=== PATIENT | female | born 1980 | race Caucasian/White ===

== ENCOUNTER → 2018-10-15 | Outpatient (CLI) | payer BC ==
[2018-10-15 16:16] VITALS: BP 106/57; PULSE 83; RESP 18; TEMP 96.9; BMI 23.3
--- NOTE | 2018-10-15 16:54 | P.HPOB ---
History of Present Illness H&P Date: 10/15/18 Chief Complaint: The patient is here for her routine gynecologic exam. This is a 38-year-old LMP of 09/24/2018. Her 's status post vasectomy. Menses are regular every month and she is without gynecologic complaints. Review of Systems The patient has gained 4 pounds over the last year. She denies respiratory, cardiac, or G.I. problems. 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 - Past Family History Mother Family Medical History: Diabetes Mellitus (Type II diabetes) Father Additional Family Medical History / Comment(s): ALS. Medications and Allergies Home Medications Medication Instructions Recorded Confirmed Type Ibuprofen [Motrin Ib] 200 mg PO 10/15/18 History Allergies Allergy/AdvReac Type Severity Reaction Status Date / Time No Known Allergies Allergy Unverified 10/15/18 16:12 Exam Vital Signs Temp Pulse Resp BP Pulse Ox 10/15/18 16:13 96.9 F L 83 18 106/57 98 Intake and Output 10/15/18 10/15/18 10/15/18 06:59 14:59 22:59 Other: Weight 58.06 kg Height 5'2", weight 128 pounds, BMI 23.4. This is a well-developed well-nourished white female who is alert and oriented times 3 in no acute distress. HEENT: Within normal limits. NECK: Supple without mass or thyromegaly. CHEST AND LUNGS: Clear to auscultation. HEART: Regular rate and rhythm. BREASTS: Are without mass or discharge. AXILLARY EXAM: Negative for adenopathy. BACK: Negative for CVA tenderness. ABDOMEN: Soft, nontender, without palpable masses. PELVIC EXAM: Normal external genitalia. Cervix and vagina appear normal. There is no unusual discharge. There is no evidence of prolapse. The uterus is midposition, nongravid size and nontender. There are no palpable adnexal masses or tenderness. RECTAL EXAM: negative for mass or tenderness. EXTREMITIES: Nontender. IMPRESSION: 1. 38-year-old female with normal gynecologic exam. 2. 's status post vasectomy. PLAN: 1. Pap smear was deferred since she had a negative one on 08/15/2017. 2. Self breast awareness was discussed with the patient. We will begin regular screening mammograms at age 39. 3. Osteoporosis prevention was discussed. I have stressed the importance of adequate calcium, vitamin D and regular exercise. Recommended amounts of calcium and vitamin D were also discussed. 4. The patient will return in one year for her well woman exam.
== END | disposition home or self-care (01) ==
LOC: WWCWWP 15:57
PROVIDERS: ATTEND Obstetrics & Gynecology
DX: Z53.9 Procedure and treatment not carried out, unspecified reason (principal)

== ENCOUNTER → 2020-09-29 | Outpatient (CLI) | payer BC ==
[2020-09-29 09:18] VITALS: BP 107/72; PULSE 67; RESP 16; TEMP 98.5
--- NOTE | 2020-09-29 10:02 | P.HPOB ---
History of Present Illness H&P Date: 09/29/20 Chief Complaint: The patient is here for her routine gynecologic exam. This is a 40-year-old with an LMP of 09/16/2020. The patient is without gynecologic complaints. Her is status post vasectomy. Menstrual periods are regular every month. Review of Systems The patient has gained 3 pounds over the last year. She denies respiratory, cardiac, or G.I. problems. 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 - Past Family History Mother Family Medical History: Diabetes Mellitus Father Additional Family Medical History / Comment(s): ALS. Medications and Allergies Home Medications Medication Instructions Recorded Confirmed Type Ibuprofen [Motrin Ib] 200 mg PO DAILY PRN 10/15/18 09/29/20 History Allergies Allergy/AdvReac Type Severity Reaction Status Date / Time No Known Allergies Allergy Unverified 09/29/20 09:12 Exam Vital Signs Temp Pulse Resp BP Pulse Ox 09/29/20 09:13 98.5 F 67 16 107/72 100 Intake and Output 09/28/20 09/29/20 09/29/20 22:59 06:59 14:59 Other: Weight 59.421 kg Height 5 foot 1 inch, weight 131 pounds, BMI 24.8. This is a well-developed well-nourished white female who is alert and oriented times 3 in no acute distress. HEENT: Within normal limits. NECK: Supple without mass or thyromegaly. CHEST AND LUNGS: Clear to auscultation. HEART: Regular rate and rhythm. BREASTS: There is a lump in the right breast at the 1 to 2 o'clock position approximately 3 cm from the areola. The lump measures approximately 1.0 x 1.0 cm. This is mildly tender. There is moderate fibrocystic tissue throughout both breasts. There are no other discrete lumps or masses. Nipples appear normal with no evidence of nipple discharge. AXILLARY EXAM: Negative for adenopathy. BACK: Negative for CVA tenderness. ABDOMEN: Soft, nontender, without palpable masses. PELVIC EXAM: Normal external genitalia. Cervix and vagina appear normal. There is no unusual discharge. There is no evidence of prolapse. The uterus is posterior, nongravid size and nontender. There are no palpable adnexal masses or tenderness. RECTAL EXAM: negative for mass or tenderness and is negative for occult blood. EXTREMITIES: Nontender. IMPRESSION: 1. 40-year-old perimenopausal female whose is status post vasectomy with normal pelvic exam.. 2. Palpable right breast lump measuring approximately 1.0 x 1.0 cm among moderate bilateral fibrous type breast tissue. Differential diagnosis will include prominent normal fibrous tissue, breast cyst, fibrocystic changes, or other breast neoplasm. PLAN: 1. Pap smear cotest was performed. 2. Self breast awareness was discussed with the patient. 3. Diagnostic mammogram with right breast ultrasound has been scheduled for 10/06/2020. We will determine if follow-up is necessary after the imaging is complete. 4. Osteoporosis prevention was discussed. I have stressed the importance of adequate calcium, vitamin D and regular exercise. Recommended amounts of calcium and vitamin D were also discussed. 5. She was advised to return in one year for her annual well woman exam.
--- NOTE | 2020-10-13 12:14 | P.PN ---
Progress Note - Text Progress Note Date: 10/13/20 OUTPATIENT FOLLOW-UP NOTE TEST(S)/RESULTS: Test results from 09/29/2020 include negative Pap smear and negative high-risk HPV testing. Diagnostic mammogram with bilateral breast ultrasound done on 10/06/2020 had a suspicious finding in the right breast. METHOD OF NOTIFICATION: The patient was notified about the Pap smear cotest results by phone. PATIENT COMMENTS: The patient is aware of the abnormal breast imaging and the recommendation for a breast biopsy. She is scheduled for this as well as an appointment with Dr. Sergio Kendall. DIAGNOSIS: Negative Pap smear cotest. Suspicious right breast finding on exam with suspicious right breast imaging. DISCUSSION: PLAN: The patient is scheduled for a right breast biopsy and also has an appointment with Dr. Sergio Kendall. She was advised to return in one year for her annual well woman exam with me.
== END | disposition home or self-care (01) ==
LOC: WWCWWP 09:02
PROVIDERS: ATTEND Obstetrics & Gynecology
DX: Z53.9 Procedure and treatment not carried out, unspecified reason (principal)

== ENCOUNTER → 2020-10-06 | Outpatient (CLI) | payer BC ==
--- NOTE | 2020-10-07 11:26 | MM ---
Reason for exam: clinical finding. History: Took hormonal contraceptives beginning at age 17. Physical Findings: Nurse Summary: 3-4cm nodule in the right breast at 1 o'clock (nurse ute). MG 3D Diag Mammo W/Cad UMANG Bilateral CC and MLO view(s) were taken. The breast tissue is heterogeneously dense. This may lower the sensitivity of mammography. Multiple underlying circumscribed masses bilaterally measuring up to 2.8cm on the right where a palpable maker is present. These results were verbally communicated with the patient and result sheet given to the patient on 10/06/20. ASSESSMENT: Incomplete: need additional imaging evaluation, BI-RAD 0 RECOMMENDATION: Ultrasound of both breasts.
--- NOTE | 2020-10-07 11:31 | USB ---
Reason for exam: additional evaluation requested from abnormal screening. History: Took hormonal contraceptives beginning at age 17. US Breast BILAT Right complete breast ultrasound includes all four quadrants, the retroareolar region and axilla. Finding demonstrates a 2.7 x 0.9 x 1.8cm cystic lesion at 1 o'clock, a 2.7 x 0.8 x 3.1cm palpable, benign, cystic cluster at 2 o'clock, a 0.6 x 0.7 x 0.7cm hypoechoic, somewhat irregular lesion at 3 o'clock for which a biopsy is recommended and a 1.7 x 0.7 x 1.8cm cystic lesion at 8 o'clock. Left complete breast ultrasound includes all four quadrants, the retroareolar region and axilla. Finding demonstrates a 1.5 x 1.0 x 1.4cm cystic lesion at 2 o'clock and a 1.8 x 0.6 x 1.3cm cystic lesion at 9 o'clock. Multiple cystic areas bilaterally. These results were verbally communicated with the patient and result sheet given to the patient on 10/06/20. ASSESSMENT: Suspicious, BI-RAD 4 RECOMMENDATION: Ultrasound core biopsy of the right breast. (3:00) Called Dr. Lund's office with mammographic findings and has scheduled an appointment for the patient for 11/04/20 at 2:[address] Clinton. Biopsy scheduled for 11/05/20 at 9:30. PRELIMINARY REPORT CALLED AND FAXED TO DR. CLINTON ON 10/06/20.
== END | disposition home or self-care (01) ==
LOC: RADMAMWWP 13:38
PROVIDERS: ATTEND Obstetrics & Gynecology
DX: N63.12 Unspecified lump in the right breast, upper inner quadrant (principal); R92.8 Other abnormal and inconclusive findings on diagnostic imaging of breast
CPT/HCPCS: 77062; 77066

== ENCOUNTER → 2020-11-04 | Outpatient (CLI) | payer BC ==
[2020-11-04 14:21] VITALS: BP 97/58; PULSE 81; RESP 18; TEMP 98.3
--- NOTE | 2020-11-04 14:46 | P.GSHP ---
History of Present Illness H&P Date: 11/04/20 Chief Complaint: abnormal mammogram and ultrasoudn right breast Odilia is a 40 year old white female seen in consultation for Dr. Lund with a complaint of an abnormal ultrasound of the right breast. She had a routine bilateral mammogram on . This revealed multiple underlying circumscribed masses bilaterally measuring up to 2.8 cm on the right for which a palpable mass was present. Ultrasound of both breasts was recommended. This was performed on the same date. In the right breast that showed a 0.6 x 0.7 cm hypoechoic somewhat irregular lesion at 3:00 for which a biopsy was recommended. The left breast showed cystic lesions as well. Multiple cystic areas bilaterally were noted. Ultrasound core biopsy of the right breast was recommended. She has an area of increased nodularity in her right breast in the upper inner quadrant. This has not changed at all. She is not complaining of any nipple discharge or skin changes. She is not complaining of breast pain. Her breat are tender right before she begins her periods. Her LMP was . Caffeine: 3-4 cups of coffee per day Nicotine: Negative Chocolate: Negative Family history: maternal grandfather: lung cancer Hormonal History: menarche: 12 , breast fed: yes, age at first : 26 periods regular BCP: none now used them for 6 years in the past Hormones: none Surgical history: Tonsillectomy Medical history: Negative Social history: Nicotine: Negative Alcohol occasional Drugs: Negative - Constitutional Constitutional: Reports sweats - EENT Eyes: denies blurred vision, denies pain Ears: deny: decreased hearing, tinnitus Ears, nose, mouth and throat: Denies headache, Denies sore throat - Breasts Breasts: bilateral: as per HPI - Cardiovascular Cardiovascular: Denies chest pain, Denies shortness of breath - Respiratory Respiratory: Denies cough, Denies 7 - Gastrointestinal Gastrointestinal: Denies abdominal pain, Denies diarrhea, Denies nausea, Denies vomiting - Genitourinary (Female) Genitourinary: Denies dysuria, Denies hematuria - Menstruation Menstruation: Reports period normal - Musculoskeletal Musculoskeletal: Denies myalgias - Integumentary Integumentary: Denies pruritus, Denies rash - Neurological Neurological: Denies numbness, Denies weakness - Psychiatric Psychiatric: Denies anxiety, Denies depression - Endocrine Endocrine: Denies fatigue, Denies weight change - Hematologic/Lymphatic Comment: none - Allergic/Immunologic Allergic/Immunologic: Reports as per HPI Past Medical History Past Medical History: No Reported History 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 History of Any Multi-Drug Resistant Organisms: None Reported Past Surgical History: Tonsillectomy Past Psychological History: No Psychological Hx Reported Smoking Status: Never smoker Past Alcohol Use History: Occasional Past Drug Use History: None Reported - Past Family History Mother Family Medical History: Diabetes Mellitus Father Additional Family Medical History / Comment(s): ALS. Medications and Allergies Home Medications Medication Instructions Recorded Confirmed Type No Known Home Medications 10/27/20 11/04/20 History Allergies Allergy/AdvReac Type Severity Reaction Status Date / Time No Known Allergies Allergy Unverified 11/04/20 14:19 Surgical - Exam Vital Signs Temp Pulse Resp BP Pulse Ox 98.3 F 81 18 97/58 98 11/04/20 14:19 11/04/20 14:19 11/04/20 14:19 11/04/20 14:19 11/04/20 14:19 BMI 24.9 - General well developed, well nourished, no distress - Eyes normal ocular movement - ENT normal pinna, normal nares - Neck no masses, trachea midline - Respiratory normal expansion, normal respiratory effort, clear to auscultation - Cardiovascular Rhythm: regular Heart Sounds: normal: S1, S2 - Abdomen Abdomen: soft - Integumentary normal turgor - Neurologic no disoriented, no combative - Musculoskeletal normal gait, normal posture - Psychiatric oriented to time, oriented to person, oriented to place, speech is normal, memory intact breast exam: BRA: 34B inspection: Bilateral grade 2 ptosis Palpation: Right breast: Multi-positional exam fibrocystic changes increased nodularity at 3:00 approximately 8 mm in size otherwise no dominant masses or nodules of concern Right axilla: No adenopathy of concern Left breast: Positional exam fibrocystic changes, no dominant masses or nodules of concern Left axilla: No adenopathy of concern Results Mammogram and ultrasound results reviewed Assessment and Plan Assessment: Impression: 1. Radiographic abnormality right breast on both mammogram and ultrasound 2. Palpable nodularity right breast at 3:00 corresponding to mammographic abnormality 3. Fibrocystic breast changes Plan: 1. Ultrasound-guided core biopsy/aspiration lesion at 3:00 in the right breast 2. Follow-up after ultrasound-guided core aspiration/biopsy Risks and benefits of the procedure discussed with the patient, she understands and wishes to proceed Cc: Dr. Lund, Dr. Curry encounter 30 minutes, time spent in reviewing records, physical examination, and counselling.
== END ==
LOC: WWCWWP 14:09
PROVIDERS: ATTEND Surgery
DX: N63.10 Unspecified lump in the right breast, unspecified quadrant (principal); N60.12 Diffuse cystic mastopathy of left breast; N60.11 Diffuse cystic mastopathy of right breast

== ENCOUNTER → 2020-11-05 | Day surgery (SDC) | payer BC ==
[2020-11-05 10:02] VITALS: RESP 16
[2020-11-05 11:07] VITALS: BP 94/62; PULSE 72; TEMP 98.4
--- NOTE | 2020-11-05 12:33 | USB ---
EXAMINATION TYPE: US biopsy breast VAD RT, MG postprocedure diagnostic mammo RT wo CAD DATE OF EXAM: 11/05/2020 CLINICAL HISTORY: 40-year-old female R92.8 Abnormal Mammogram. TECHNIQUE: Ultrasound guided core biopsy of the right breast. COMPARISON: 10/06/2020 FINDINGS: The procedure of ultrasound guided core biopsy was explained to the patient. Benefits, alternatives, and risks were discussed. An informed consent was then obtained. The 9 mm hypoechoic area at the 3:00 position of the right breast was identified and targeted for biopsy. The patient was placed in supine positioning for imaging and for the procedure. The overlying skin was prepped and draped in usual sterile fashion. Lidocaine was used as anesthetic into the skin and subcutaneous tissue up to area of concern in the 3:00 right breast. Under ultrasound guidance, a 13-gauge vacuum-assisted mammotome Elite biopsy gun device was used to obtain 5 core samples. Following this, a ribbon clip was left at the site of biopsy. The patient tolerated the procedure well without any immediate complication. The patient was kept in the radiology department for short stay after the procedure and then discharged home in stable condition. Post biopsy mammogram shows the ribbon clip at the 2 to 3:00 position one of the sites of mammographic asymmetric density. IMPRESSION: Successful, uncomplicated ultrasound guided core biopsy of the 3:00 hypoechoic area in the right. Full pathology results to follow. If benign results, one year follow-up diagnostic bilateral mammograms can be performed given the extensive bilateral breast complexity. Pathology Results: Benign RIGHT BREAST, ULTRASOUND GUIDED CORE BIOPSY: Fibroadenoma and background fibrocystic changes with rare microcalcifications. RECOMMENDATION: One year follow-up diagnostic bilateral mammograms as mentioned above. MOISÉSD
== END ==
LOC: RADUSWWP 09:27
PROVIDERS: ATTEND Surgery
DX: D24.1 Benign neoplasm of right breast (principal); N60.11 Diffuse cystic mastopathy of right breast
CPT/HCPCS: 88305; 77065; 19083; A4648; J2001

== ENCOUNTER → 2020-11-12 | Outpatient (CLI) | payer BC ==
[2020-11-12 10:16] VITALS: BP 117/81; PULSE 71; RESP 18; TEMP 98.2
--- NOTE | 2020-11-12 10:34 | P.PN ---
Subjective Progress Note Date: 11/12/20 Principal diagnosis: fibroadenoma right breast Odilia is a 40 year old white female seen in consultation for Dr. Lund with a complaint of an abnormal ultrasound of the right breast. She had a routine bilateral mammogram on . This revealed multiple underlying circu mscribed masses bilaterally measuring up to 2.8 cm on the right at which location a palpable mass was present. Ultrasound of both breasts was recommended. This was performed on the same date. In the right breast that showed a 0.6 x 0.7 cm hypoechoic somewhat irregular lesion at 3:00 for which a biopsy was recommended. The left breast showed cystic lesions as well. Multiple cystic areas bilaterally were noted. Ultrasound core biopsy of the right breast was recommended. She has an area of increased nodularity in her right breast in the upper inner quadrant. This has not changed at all. She is not complaining of any nipple discharge or skin changes. She is not complaining of breast pain. Her breast are tender right before she begins her periods. Her LMP was . Ultrasound-guided core biopsy was performed on . This was consistent with a fibroadenoma. The patient has no complaints related to the biopsy. Caffeine: 3-4 cups of coffee per day Nicotine: Negative Chocolate: Negative Family history: maternal grandfather: lung cancer Hormonal History: menarche: 12 , breast fed: yes, age at first : 26 periods regular BCP: none now used them for 6 years in the past Hormones: none Surgical history: Tonsillectomy Medical history: Negative Social history: Nicotine: Negative Alcohol occasional Drugs: Negative - Constitutional Constitutional: Reports sweats - EENT Eyes: denies blurred vision, denies pain Ears: deny: decreased hearing, tinnitus Ears, nose, mouth and throat: Denies headache, Denies sore throat - Breasts Breasts: bilateral: as per HPI - Cardiovascular Cardiovascular: Denies chest pain, Denies shortness of breath - Respiratory Respiratory: Denies cough, - Gastrointestinal Gastrointestinal: Denies abdominal pain, Denies diarrhea, Denies nausea, Denies vomiting - Genitourinary (Female) Genitourinary: Denies dysuria, Denies hematuria - Menstruation Menstruation: Reports period normal - Musculoskeletal Musculoskeletal: Denies myalgias - Integumentary Integumentary: Denies pruritus, Denies rash - Neurological Neurological: Denies numbness, Denies weakness - Psychiatric Psychiatric: Denies anxiety, Denies depression - Endocrine Endocrine: Denies fatigue, Denies weight change - Hematologic/Lymphatic Comment: none - Allergic/Immunologic Allergic/Immunologic: Reports as per HPI Past Medical History Past Medical History: No Reported History 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 History of Any Multi-Drug Resistant Organisms: None Reported Past Surgical History: Tonsillectomy Past Psychological History: No Psychological Hx Reported Smoking Status: Never smoker Past Alcohol Use History: Occasional Past Drug Use History: None Reported Objective - Vital Signs Vital signs: Vital Signs Temp 98.2 F 11/12/20 10:14 Pulse 71 11/12/20 10:14 Resp 18 11/12/20 10:14 BP 117/81 11/12/20 10:14 Pulse Ox 100 11/12/20 10:14 Intake & Output 11/11/20 11/12/20 11/12/20 18:59 06:59 18:59 Weight 58.967 kg - Exam BMI 24.6 - Constitutional General appearance: Present: average body habitus - EENT Eyes: Present: EOMI ENT: Present: hearing grossly normal - Neck Neck: Present: normal ROM - Respiratory Respiratory: bilateral: CTA - Cardiovascular Rhythm: regular Heart sounds: normal: S1, S2 - Integumentary Integumentary Comment(s): Biopsies a clean and dry Evidence of infection, mild ecchymosis of biopsy site, no evident hematoma Integumentary: Present: normal turgor - Musculoskeletal Musculoskeletal: Present: gait normal - Psychiatric Psychiatric: Present: A&O x's 3, appropriate affect, intact judgment & insight Assessment and Plan Assessment: Impression: 1. Patient status post ultrasound-guided core biopsy radiographic abnormality right breast. This corresponded to the palpable change in the right breast as well. Benign fibroadenoma. 2. Fibrocystic changes Plan: 1. Repeat ultrasound right breast in 6 months to assure this area is not increasing in size 2. Repeat bilateral mammogram in 1 year, physician exam at that time CC: Dr. Soria ([place]), Dr. Lund
== END ==
LOC: WWCWWP 09:58
PROVIDERS: ATTEND Surgery
DX: D24.1 Benign neoplasm of right breast (principal); N60.11 Diffuse cystic mastopathy of right breast; N60.12 Diffuse cystic mastopathy of left breast

== ENCOUNTER → 2021-10-12 | Outpatient (CLI) | payer BC ==
--- NOTE | 2021-10-12 09:38 | MM ---
Reason for exam: additional evaluation requested from prior study. Last mammogram was performed 11 months ago. History: Benign US biopsy breast VAD RT of the right breast, November 05, 2020. Took hormonal contraceptives beginning at age 17. Physical Findings: Nurse Summary: 0.5cm nodule in the right breast at 9 o'clock (nurse mj). MG 3D Diag Mammo W/Cad UMANG Bilateral CC and MLO view(s) were taken. Prior study comparison: November 05, 2020, right breast MG diagnostic mammo RT wo CAD. October 06, 2020, bilateral MG 3d diag mammo w/cad UMANG. The breast tissue is heterogeneously dense. This may lower the sensitivity of mammography. Stable benign calcifications bilaterally. Multiple bilateral masses likely reflecting cysts. Ultrasound recommended of palpable abnormality on right breast. These results were verbally communicated with the patient and result sheet given to the patient on 10/12/21. ASSESSMENT: Incomplete: need additional imaging evaluation, BI-RAD 0 RECOMMENDATION: Ultrasound of the right breast. Manage patient on a clinical basis.
--- NOTE | 2021-10-12 09:39 | USB ---
Reason for exam: additional evaluation requested from abnormal screening. History: Benign US biopsy breast VAD RT of the right breast, November 05, 2020. Took hormonal contraceptives beginning at age 17. US Breast Limited RT Technologist: Ana Luisa Romero Right limited breast ultrasound including focal area of concern, retroareolar and axilla demonstrates a 0.3 x 0.4 x 0.3cm cystic lesion at 9 o'clock BB. These results were verbally communicated with the patient and result sheet given to the patient on 10/12/21. ASSESSMENT: Benign, BI-RAD 2 RECOMMENDATION: Routine screening mammogram of both breasts in 1 year. Manage patient on a clinical basis.
== END | disposition home or self-care (01) ==
LOC: RADMAMWWP 07:37
PROVIDERS: ATTEND Surgery
DX: R92.8 Other abnormal and inconclusive findings on diagnostic imaging of breast (principal)
CPT/HCPCS: 77062; 77066

== ENCOUNTER → 2021-11-08 | Outpatient (CLI) | payer BC ==
[2021-11-08 16:19] VITALS: BP 112/73; PULSE 73; RESP 17; TEMP 98.7
--- NOTE | 2021-11-08 16:57 | P.HPOB ---
History of Present Illness H&P Date: 11/08/21 Chief Complaint: The patient is here for her routine gynecologic exam. This is a 41-year-old with an LMP of 10/12/2021. The patient's is status post vasectomy. Menstrual periods are regular every month. She is without gynecologic complaints. She states she did notice a rash after her second Covid vaccination as well as after having a mild case of Covid after her vaccinations. Recently this rash was on her neck, but this has improved. Now she has a rash between the breasts over the sternum. Her PCP prescribed a steroid pack and this did seem to improve somewhat, but seems to be coming back. Review of Systems The patient's weight has been stable over the last year. She denies respiratory, cardiac, or G.I. problems. 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 History of Any Multi-Drug Resistant Organisms: None Reported Past Surgical History: Breast Surgery, Tonsillectomy Additional Past Surgical History / Comment(s): Right breast biopsy 2020-benign. 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 - Past Family History Mother Family Medical History: Diabetes Mellitus Father Additional Family Medical History / Comment(s): ALS. Brother(s) Family Medical History: Renal Disease Additional Family Medical History / Comment(s): Nicole's nephropathy. Medications and Allergies Home Medications Medication Instructions Recorded Confirmed Type methylPREDNISolone Dose Pack 4 mg PO DAILY 11/08/21 11/08/21 History [Medrol Dose Pack] Allergies Allergy/AdvReac Type Severity Reaction Status Date / Time No Known Allergies Allergy Verified 11/08/21 16:15 Exam Vital Signs Temp Pulse Resp BP Pulse Ox 11/08/21 16:16 98.7 F 73 17 112/73 100 Intake and Output 11/08/21 11/08/21 11/08/21 06:59 14:59 22:59 Other: Weight 59.874 kg Height 5 foot 1 inch, weight 132 pounds, BMI 24.9. This is a well-developed well-nourished white female who is alert and oriented times 3 in no acute distress. HEENT: Within normal limits. NECK: Supple without mass or thyromegaly. CHEST AND LUNGS: Clear to auscultation. There is a slight papular rash over the sternum in the midline. HEART: Regular rate and rhythm. BREASTS: Are without mass or discharge. AXILLARY EXAM: Negative for adenopathy. BACK: Negative for CVA tenderness. ABDOMEN: Soft, nontender, without palpable masses. PELVIC EXAM: Normal external genitalia. Cervix and vagina appear normal. There is no unusual discharge. There is no evidence of prolapse. The uterus is midposition, nongravid size and nontender. There are no palpable adnexal masses or tenderness. RECTAL EXAM: negative for mass or tenderness and is negative for occult blood. EXTREMITIES: Nontender. IMPRESSION: 1. 41-year-old premenopausal female whose is status post vasectomy, with normal gynecologic exam. 2. Slight rash over the sternum in the midline. This may or may not be related to her Covid vaccination or mild Covid infection. PLAN: 1. Pap smear was deferred since she had a negative Pap smear test on 09/29/2020. 2. Self breast awareness was discussed with the patient. We have also discussed symptoms associated with inflammatory breast cancer. 3. Bilateral diagnostic mammogram was done on 10/12/2021 and this did include a right breast ultrasound. This was felt to be benign and screening mammogram was recommended in 1 year. 4. If her chest wall rash has not improved after the Medrol Dosepak prescribed by her PCP, I have recommended she consider seeing a frame assembler for this. 5. Osteoporosis prevention was discussed. I have stressed the importance of adequate calcium, vitamin D and regular exercise. 6. She did receive her Covid vaccination series, but does not get a booster. 7. The HPV vaccination available for teenagers was discussed since she does have 2 teenage kids. 8. She was advised to return in one year for her annual well woman exam.
== END ==
LOC: WWCWWP 16:08
PROVIDERS: ATTEND Obstetrics & Gynecology
DX: Z01.419 Encounter for gynecological examination (general) (routine) without abnormal findings (principal); R21 Rash and other nonspecific skin eruption

== ENCOUNTER → 2022-07-18 | Outpatient (CLI) | payer BC ==
[2022-07-18 08:21] VITALS: BP 119/79; PULSE 78; RESP 17; TEMP 97.9
--- NOTE | 2022-07-18 08:51 | P.PN ---
Progress Note - Text Progress Note Date: 07/18/22 Chief Complaint: Right breast lumps first noticed about 1 week ago. HPI: This is a 42-year-old with an LMP of 06/27/2022. The patient's is status post vasectomy. The patient noticed 2 breast lumps in the right breast about 1 week ago. One is more prominent at approximately the 7 to 8 o'clock position. A second one is smaller at approximately the 9 o'clock position close to the areola. She denies breast pain or tenderness. She also denies nipple discharge or blood. She has not lost weight recently. The patient had an abnormal mammogram on the right side with suspicious changes at the 3 o'clock position. She did have a breast biopsy about 1-1/2 years ago at the 3 o'clock position and this showed a benign fibroadenoma. ROS: She denies weight loss or fever. She denies respiratory, cardiac, or GI problems. PE: Blood pressure: 119/79, Height: 5 feet 2 inches, Weight: And 133 pounds, Temperature: 97.9, Pulse: 78. Pulse oximeter 100%. This is a well developed, well nourished, white female who is alert and orientedx3, in no acute distress. Breast exam: The right breast is normal in appearance without unusual puckering or dimpling. There is no nipple inversion or evidence of nipple discharge. At the 8 o'clock position there is a mass measuring approximately 1.5 x 2 cm. This is approximately 3.5 cm from the areola. Approximately 1.5 cm from the areola at the 9 o'clock position there is a firm area measuring approximately 1 x 1.5 cm. Both of these areas are nontender. The right breast has moderate fibrous- type changes throughout that make the breast seem more heterogeneous and consistent with fibrocystic changes. The left breast also has moderate fibrocystic changes throughout without a dominant mass. Axillary exam is negative for adenopathy bilaterally. Impression: 1. 42-year-old peremenopausal female with fibrocystic type changes in the breasts with a dominant lump at the 8 o'clock position measuring approximately 1.5 x 2 cm. There is a left prominent lump at the 9 o'clock position measuring 1 x 1.5 cm. Differential diagnosis will include fibrocystic changes of the breast, fibroadenoma as well as other breast neoplasm. 2. 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 Plan: 1. Breast ultrasound on the right side will be done today. The areas of concern had been marked. If benign appearance by ultrasound, she will be re- seen in approximately 4 months for her annual well woman examination with a mammogram. If there are any suspicious signs by ultrasound, she will be referred back to Dr. Sergio Kendall, who she had seen for the suspicious mammogram in 2020. Time spent with the patient: 15 minutes
--- NOTE | 2022-07-18 09:08 | USB ---
Reason for Exam: Clinical finding. Patient History: Menarche at age 12. First Full-Term at age 26. Hormonal Contraceptives, from age 17 until age 25. 11/05/2020, Benign Core Biopsy on the right side. Risk Values: Juliane 5 year model risk: 1.3%. NCI Lifetime model risk: 13.0%. Technique: Method: Targeted. Prior Study Comparison: 10/06/2020 Bilateral Diagnostic Mammogram, [facility]. 11/05/2020 Right Diagnostic Mammogram, [facility]. 10/12/2021 Bilateral Diagnostic Mammogram, [facility]. Findings: The upper outer quadrant of the right breast, the axilla of the right breast and the retroareolar of the right breast were scanned. Targeted ultrasound right breast upper outer quadrant 9:00 to 12:00 including the subareolar region axilla. At the 9:00 palpable site, there is a large 2 cm cyst. At the 11:00 palpable site, there is a large 2.5 cm cyst. At the 12:00, nonpalpable site, there is an even larger 3.7 cm cyst. Additional conglomerate cysts measuring up to 3.9 cm are also noted at both block. No axillary lymphadenopathy or suspicious solid lesion.. Overall Assessment: Probably benign, BI-RAD 3 Management: Diagnostic Mammogram of both breasts in 3 months. 1. Patient should continue monthly self breast exams. 2. A clinical breast exam by your physician is recommended on an annual basis. 3. This exam should not preclude additional follow-up of suspicious palpable abnormalities. Electronically signed and approved by: Nadya Baer M.D. Radiologist
--- NOTE | 2022-07-18 11:37 | P.PN ---
Progress Note - Text Progress Note Date: 07/18/22 OUTPATIENT FOLLOW-UP NOTE TEST(S)/RESULTS: Breast ultrasound done today, 07/18/2022, showed benign- appearing cysts. The largest cyst measured 3.7 cm and another cyst measured 2.5 cm. METHOD OF NOTIFICATION: A message with these results was left on the patient's voicemail. PATIENT COMMENTS: DIAGNOSIS: Right breast cysts which appear benign by ultrasound. DISCUSSION: Diagnostic bilateral mammogram was recommended in 3 months. PLAN: She will return in approximately 3-4 months for her annual well woman examination and for a diagnostic bilateral mammogram.
== END ==
LOC: WWCWWP 08:12
PROVIDERS: ATTEND Obstetrics & Gynecology
DX: N60.11 Diffuse cystic mastopathy of right breast (principal)

== ENCOUNTER → 2023-02-14 | Outpatient (CLI) | payer BC ==
[2023-02-14 08:37] VITALS: BP 120/79; PULSE 70; RESP 16; TEMP 97.6
--- NOTE | 2023-02-14 09:35 | P.HPOB ---
History of Present Illness H&P Date: 02/14/23 Chief Complaint: The patient is here for her routine gynecologic exam and ma mmogram. This is a 42-year-old with an LMP of 02/10/2023. The patient's is status post vasectomy. The patient states her menstrual periods have been regular every month lasting 5 days with normal flow until about 2 months ago. She had some intermittent spotting before and after her LPMP. She did have appropriate menstrual period flows at the right time. She has had fibrocystic changes of the breasts and on 07/18/2022 had an ultrasound of the right breast showing benign breast cysts measuring 3.7 cm and 2.5 cm. She believes she has noticed some cystic kind of changes that seem to come and go during her menstrual cycle. Review of Systems The patient has gained 4 pounds over the last year. She denies respiratory, cardiac, or G.I. problems. 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 History of Any Multi-Drug Resistant Organisms: None Reported Past Surgical History: Breast Surgery, Tonsillectomy Additional Past Surgical History / Comment(s): Right breast biopsy 2020-benign. 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 - Past Family History Mother Family Medical History: Diabetes Mellitus Father Additional Family Medical History / Comment(s): ALS. Brother(s) Family Medical History: Renal Disease Additional Family Medical History / Comment(s): Nicole's nephropathy. Medications and Allergies Home Medications Medication Instructions Recorded Confirmed Type No Known Home Medications 07/18/22 02/14/23 History Allergies Allergy/AdvReac Type Severity Reaction Status Date / Time No Known Allergies Allergy Verified 02/14/23 08:34 Exam Vital Signs Temp Pulse Resp BP Pulse Ox 02/14/23 08:34 97.6 F 70 16 120/79 100 Intake and Output 02/13/23 02/14/23 02/14/23 22:59 06:59 14:59 Other: Weight 61.689 kg Height 5 foot 1 inch, weight 136 pounds, BMI 25.7. This is a well-developed well-nourished white female who is alert and oriented times 3 in no acute distress. HEENT: Within normal limits. NECK: Supple without mass or thyromegaly. CHEST AND LUNGS: Clear to auscultation. HEART: Regular rate and rhythm. BREASTS: Are without mass or discharge. She does have moderate fibrous tissue throughout both breasts with no discrete abnormal masses. AXILLARY EXAM: Negative for adenopathy. BACK: Negative for CVA tenderness. ABDOMEN: Soft, nontender, without palpable masses. PELVIC EXAM: Normal external genitalia. Cervix and vagina appear normal. Cervix appears multiparous. There is no unusual discharge. There is no evidence of prolapse. The uterus is midposition, nongravid size and nontender. There are no palpable adnexal masses or tenderness. RECTAL EXAM: Rectovaginal exam is negative for mass or tenderness and is negative for occult blood. EXTREMITIES: Nontender. IMPRESSION: 1. 42-year-old female whose is status post vasectomy, with normal gynecologic exam. 2. Recent history of intermenstrual spotting prior to and after her last prior menstrual period. 3. History of fibrocystic changes of the breast with previous ultrasound on 07/18/2022 showing benign right breast cysts. PLAN: 1. Pap smear was deferred since she had a negative Pap smear cotest on 09/29/2020. 2. Self breast awareness was discussed with the patient. We have also discussed symptoms associated with inflammatory breast cancer. 3. Diagnostic mammogram will be done today because of the history of breast cysts. 4. Osteoporosis prevention was discussed. I have stressed the importance of adequate calcium, vitamin D and regular exercise. Recommended amounts of calcium and vitamin D were also discussed. 5. She will keep a menstrual calendar to see if the intermenstrual spotting persists. If after 2 months she continues to have intermenstrual spotting, she was instructed to call. At that time we will discuss further evaluation which may include endometrial biopsy and pelvic ultrasound. 6. She was advised to return in one year for her annual well woman exam and as needed.
== END ==
LOC: WWCWWP 08:29
PROVIDERS: ATTEND Obstetrics & Gynecology
DX: N93.9 Abnormal uterine and vaginal bleeding, unspecified (principal); N60.11 Diffuse cystic mastopathy of right breast

== ENCOUNTER → 2023-02-14 | Outpatient (CLI) | payer BC ==
--- NOTE | 2023-02-14 09:50 | MM ---
Reason for Exam: Follow-up at short interval from prior study. Last mammogram was performed 1 year(s) and 4 month(s) ago. Patient History: Menarche at age 12. First Full-Term at age 26. Premenopausal. Hormonal Contraceptives, from age 17 until age 25. 11/05/2020, Benign Core Biopsy on the right side. Last menstrual period: 02/10/2023 Risk Values: Juliane 5 year model risk: 1.3%. NCI Lifetime model risk: 13.0%. Prior Study Comparison: 10/06/2020 Bilateral Diagnostic Mammogram, [facility]. 10/06/2020 Bilateral Diagnostic Ultrasound, [facility]. 11/05/2020 Right Diagnostic Mammogram, [facility]. 10/12/2021 Bilateral Diagnostic Mammogram, [facility]. 10/12/2021 Right Diagnostic Ultrasound, [facility]. 07/18/2022 Right US breast limited RT, [facility]. Tissue Density: The breast tissue is extremely dense which could obscure a lesion on mammography. Findings: Analyzed By CAD. There are multiple nodularities through the bilateral breasts. The right breast appears stable. The left breast may have some enlarging nodularity within the 12:00 middle position and approximately 8:00 lower inner quadrant posterior position. Additional evaluation of these 2 areas is recommended with ultrasound. There are a few scattered punctate calcifications. No suspicious cluster of microcalcifications evident. Otherwise, No suspicious groups of microcalcifications, spiculated or lobular masses, architectural distortion or other secondary signs of malignancy are mammographically apparent. Overall Assessment: Incomplete: need additional imaging evaluation, BI-RAD 0 Management: Diagnostic Breast Ultrasound of the left breast. A negative mammogram report should not preclude additional follow up of suspicious palpable abnormalities. Patient should continue monthly self breast exam. A clinical breast exam by your physician is recommended on an annual basis and results should be correlated with mammographic findings. Electronically signed and approved by: Gopal Jerome D.O. Radiologis
--- NOTE | 2023-02-14 10:43 | USB ---
Reason for Exam: Clinical finding. Patient History: Menarche at age 12. First Full-Term at age 26. Premenopausal. Hormonal Contraceptives, from age 17 until age 25. 11/05/2020, Benign Core Biopsy on the right side. Risk Values: Juliane 5 year model risk: 1.3%. NCI Lifetime model risk: 13.0%. Technique: Method: Targeted. Patient Position: Supine. Prior Study Comparison: 10/06/2020 Bilateral Diagnostic Mammogram, [facility]. 11/05/2020 Right Diagnostic Mammogram, [facility]. 10/12/2021 Bilateral Diagnostic Mammogram, [facility]. Findings: The medial section of the breast of the left breast was scanned. There are multiple simple appearing cysts present within the left breast including the 12:00 position and the 8 to 9:00 position. These appear to correlate with the mammographic findings. No suspicious solid lesions are evident.. Overall Assessment: Benign, BI-RAD 2 Management: Screening Mammogram of both breasts in 8 months. A clinical breast exam by your physician is recommended on an annual basis and results should be correlated with mammographic findings. This exam should not preclude additional follow-up of suspicious palpable abnormalities. Results were given to the patient verbally at the time of exam. Electronically signed and approved by: Gopal Jerome D.O. Radiologis
== END | disposition home or self-care (01) ==
LOC: RADMAMWWP 08:27
PROVIDERS: ATTEND Obstetrics & Gynecology
DX: R92.8 Other abnormal and inconclusive findings on diagnostic imaging of breast (principal)
CPT/HCPCS: 77062; 77066